=== PATIENT | male | born 1945 | race Caucasian/White ===

== ENCOUNTER 2019-03-07 22:01 | Emergency (ER) | payer MEDICARE, OTHER ==
[~2019-03-07] VITALS: Ht 182.9 cm; Wt 90.7 kg
[~2019-03-07 22:01] MED LIST: ASPIRIN81 MG PO; ATENOLOL25 MG PO; ATORVASTATIN CA80 MG PO; COQ-1030 MG PO; FISH OIL 1,2001 EACH PO; HYDROCHLOROTHIA25 MG PO; MULTIVITAMINS1 EAC7 PO; VITAMIN B122500 MC1 PO; VITAMIN C1000 MG PO; ZYRTEC10 M3 PO
== END 2019-03-08 02:18 | disposition home or self-care (01) ==
LOC: ED 22:01
DX: R41.82 Altered mental status, unspecified (principal); I10 Essential (primary) hypertension; E11.9 Type 2 diabetes mellitus without complications; Z87.891 Personal history of nicotine dependence; Z91.018 Allergy to other foods; Z91.048 Other nonmedicinal substance allergy status; Z79.82 Long term (current) use of aspirin; Z79.899 Other long term (current) drug therapy; W18.30XA Fall on same level, unspecified, initial encounter
CPT/HCPCS: 70450; 80053; 81001; 85025; 85610; 85730; 99284-25; G0480

== ENCOUNTER 2019-10-23 10:30 | Inpatient (IN) | payer MEDICARE, OTHER ==
[~2019-10-23] VITALS: Ht 182.9 cm; Wt 65.3 kg
[~2019-10-23 10:30] MED LIST changes: -ASPIRIN81 MG PO; +ECOTRIN325 MG PO
[2019-10-23] MEDS ORDERED: DONEPEZIL HCL10 MG PO (12:57)
[2019-10-23] MEDS ORDERED: FOSINOPRIL SODI40 MG PO (12:57)
[2019-10-23] MEDS ORDERED: ATORVASTATIN CA80 MG PO (12:57)
[2019-10-23] MEDS ORDERED: METFORMIN HCL500 MG PO (12:58)
--- NOTE | 2019-10-23 13:35 | NUR ---
PATIENT ARRIVES TO CCU VIA STRETCHER FROM ER AT 1300. PT PULLED OVER TO CCU BED X 2 PERSON ASSIST. PT UNABLE TO HELP. PT IS NON VERBAL AND ONLY NOTED TO BE MOANING OUT AND MOSTLY GAZES TO THE LEFT. WHEN YOU CALL PATIENT'S NAME, HE DOES SEEM TO RESPOND SOMEWHAT BY REDIRECTING HIS EYES, BUT DOES NOT MAINTAIN EYE CONTACT. PT DOES NOT FOLLOW ANY COMMANDS. PT HAS A VERY MOIST, LOOSE SOUNDING COUGH. COUGH APPEARS VERY WEAK IN NATURE, AND PATIENT HAS BEEN HELPED TO SUCTION BACK OF HIS THROAT. GAG REFLEX PRESENT. HR INT HE 90-100s, SINUS. BP 130-150/70s. PT INIALLY ON 4 L NC BUT SP02 DOWN TO 82% AFTER MOVING PATIENT TO CCU BED AND OXYMASK APPLIED OVER NASAL CANNULA FOR A FEW MINUTES WHILE SP02 RETURNED TO GREATER THAN 90%. CURRENTLY 93% ON 4 L NC. PT DOES HAVE SOME MILD LABORED BREATHING WITH OME INTERCOSTAL RETRACTIONS NOTED. RODRIGUEZ CATH DRAINING YELLOW URINE. PT HAS FINISHED 2 500 ML BOLUS OF NS AND NOW A LITER OF LR IS INFUSING A BOLUS. ONE IV SITE IN LEFT HAND, 18G EMS START. BED ALARM WILL BE ON FOR SAFETY. PT HAS A VERY LARGE HEMATOMA BRUISE ON LEFT UPPER AND INNER THIGH, EXPANDING ABOUT 10 IN ACROSS WITH A PALPABLE MASS LIKE AREA IN THE CENTER. BRUISING IS PURPLEISH AND YELLOWISH, INDICATING THAT IT IS LIKELY NOT BRAND NEW. ALSO A YELLOW BRUISE NOTED OVER STERNAL AREA. SOME OTHER BRUISING DIFFUSE TO LOWER LEGS. CONTINUE TO MONITOR CLOSELY.
--- NOTE | 2019-10-23 14:54 | NUR ---
PATIENT DESATURATING AGAIN ON 4 L NC, DOWN TO 83%. OXYGEN NASAL CANNULA INCREASED TO 6 L, BUT SP02 STILL LOW. OXYMASK ATTEMPTED TO APPLY TO PATIENT'S FACE BUT PATIENT IMMEDIATELY REACHES FOR THIS AND PULLS IT OFF. PT SUCTIONED BEST POSSIBLE IN BACK OF THROAT WITH SOME SUCCESS. SP02 NOW UP TO 89% ON 6 L NC. VERY COARSE LOOSE RHONCHI AUSCULTATED IN LEFT UPPER LUNG AREA AND SOME COARSENESS HEARD IN RIGHT UPPER LUNG WELL.
--- NOTE | 2019-10-23 16:07 | NUR ---
PATIENT STILL MOANING AND GROANING SOME, BUT OVERALL SEEMS SOMEWHAT LESS RESTLESS. PT WILL TRACK THIS RN WITH HIS EYES, AND DID OPEN HIS MOUTH WHEN I TOOK HIS TEMP ORALLY. OTHERWISE REMAINS NON VERBAL. SP02 IS 91% ON 4 L NC AT THIS TIME. WILL CONTINUE TO MONITOR.
--- NOTE | 2019-10-23 16:20 | NUR ---
PATIENT REPOSITIONED TO LEFT SIDE AND KEPT WITH HOB AT 45 DEGREES. P CURRENTLY 90% ON 4 L NC. SUPPOSITORY TO BE GIVEN.
--- NOTE | 2019-10-23 18:00 | NUR ---
ASSISTED KIM JACKSON IN REPOSITIONING PATIENT AND CHECKING PATIENT FOR BOWEL MOVEMENT. RN STARTED NEW IV PATIENT HAD PULLED HIS OUT OF LEFT HAND. BED ALARM ON, PATIENT SITTING UP IN BED, CALL LIGHT IN REACH.
--- NOTE | 2019-10-23 18:12 | NUR ---
PATIENT MANUALLY DISIMPACTED FROM HARD EASILY PALPABLE STOOL PRESENT AT HIS RECTUM. PT TOLERATED WELL. PT PULLED IV OUT OF LEFT HAND AND WAS ATTEMPTING TO GET OUT OF BED EVIDENCED BY THROWING HIS LEG OUT OF THE BED. PT HELPED TO REPOSITION BACK INTO BED AND TURNED TO LEFT SIDE. NEW IV PLACED IN LEFT FOREARM. IVF CONTINUE AT 125 ML/HR. PT CONTINUES TO HAVE SP02 OF 87% AND THIS TURNED UP TO 6 L FROM 5 L. WILL CONTINUE TO MONITOR.
--- NOTE | 2019-10-23 19:15 | NUR ---
REPORT RECEIVED FROM MANUEL ALVAREZ. PT IS RESTING IN BED WITH EYES CLOSED, IN VIEW OF NURSES STATION. SPO2 92% ON 5L/NC
--- NOTE | 2019-10-23 20:29 | NUR ---
PT REPOSITIONED AND ASSESSMENT DONE. PT IS AWAKE, HAS EYES OPEN BUT DOES NOT MAKE ANY RESPONSE TO QUESTIONS ASKED. APPEARS COMFORTABLE AND RESTFUL. LUNGS DIM, CLEAR IN UPPER LOBES FEW COARSE SOUNDS ON LEFT SIDE. SPO2 92% 5L/NC. RESTING HR 105 AND RESP RATE 23 UNLABORED. RODRIGUEZ PATENT DRAINING CLEAR YELLOW URINE. IVF INFUSING AT 125ML/HR AND IV ABX HUNG. BED ALARM ON AND PT IN VIEW OF NURSES STATION.
--- NOTE | 2019-10-23 23:16 | NUR ---
PT A BIT MORE RESTLESS, ATTENDS CHECKED AND PT INC STOOL. ATENDS CHANGED AND PT REPOSITIONED UP IN BED. DURING THIS TIME PT IS AWAKE BUT DOES NOT ANSWER QUESTIONS. ORAL CARE AND SUCTIONING DONE. URINE OUTPUT 43ML FOR LAST HOUR. HR DOWN TO 98, SPO2 92% ON 5L/NC. ATTEMPTED TO HAVE PT WEAR OXYMASK BUT HE CONSTANTLY REMOVED IT.
--- NOTE | 2019-10-24 00:30 | NUR ---
PT PULLING AT NC. REAPPLIED AND SATURATIONS INCREASED TO LOW 90s.
--- NOTE | 2019-10-24 01:30 | NUR ---
pt REMOVED NC DROPPING INTO MID 80s. KIM GREEN IN ROOM ALONG WITH THIS UNIT CLERK. DEEP SUCTION OCCURED pt SEEMED TO HAVE A HARD TIME COUGHING. NC WAS REAPPLIED BUT pt CONTINUED TO REMOVE. BLOW-BY WAS ATTEMPTED WITH INCREASED SATURATION TO THE LOW 90s.
--- NOTE | 2019-10-24 02:00 | NUR ---
PT REPOSITIONED, CONT TO TRY TO TAKE O2 OFF, SATS 85% ON ROOM AIR. REQUIRES FREQUENT REPLACING OF O2.
--- NOTE | 2019-10-24 02:15 | NUR ---
pt MOVED OXYMASK (BLOW-BY) FROM AROUND HIS FACE CAUSING A DECREASE IN o2 SATS. NC WAS REAPPLIED AT THIS TIME.
--- NOTE | 2019-10-24 04:30 | NUR ---
PT HAS BEEN FREQUENTLY PICKING AT NASAL CANNULA AND OXYMASK, WIILL NOT KEEP THEM IN PLACE AND SPO2 85-87% ON ROOM AIR. QUICKLY UP TO 93% WHEN O2 APPLIED BUT PT CAN NOT SEEM TO KEEP O2 IN PLACE.
--- NOTE | 2019-10-24 04:50 | NUR ---
PLACED NASAL CANNULA 6L WITH OXYMASK WITH O2 OFF OVER CANNULA TO KEEP PT FROM PULLING CANNULA OFF. THIS HAS WORKED TO KEEP CANNULA IN PLACE AND SPO2 95%. RESTING HR 100 AND RESP RATE 20. URINE OUTPUT HAS DROPPED SOME, TO 30 ML LAST HOUR AND URINE HAS BECOME MORE GUMARO. PT SEEMS A BIT MORE ROUSABLE THIS AM AND IS MAKING SOME MORE VERBAL LIKE SOUNDS AT TIMES. PT REPOSITIONED AND ATTENDS DRY.
--- NOTE | 2019-10-24 08:23 | NUR ---
HEAD OF BED UP 45, PATIENT RESTING, EYES CLOSED. WOKE FOR THIS CHARTER AND TOUR BUS DRIVER TO SWAB HIS MOUTH WITH TOOTHETTE. VITALS AND I&OS CHARTED. CALL LIGHT IN WITHIN REACH.
--- NOTE | 2019-10-24 09:03 | NUR ---
DR. BOWER IN ROOM TO SEE PATIENT. PATIENT REPOSITIONED TO LEFT SIDE AND ATTENDS CHANGED. PT HAD A SMEAR OF A BM. URINE OUTPUT THIS LAST HOUR WAS 32 ML. PT DOWN TO 3 L NC WITH SP02 OF 94%. SUCTIONED ORALLY AND PATIENT HAS MODERATE AMOUNTS OF SPUTUM AND SECRETIONS ACCUMULATING IN HIS MOUTH. LUNGS CLEAR ON RIGHT UPPER LOBE BUT DIMINISHED ON LEFT UPPER LOBE. HR IN THE 80s AT THIS MOMENT, LAST BP 138/61.
--- NOTE | 2019-10-24 09:05 | NUR ---
ASSISTED RN MANUEL-REPOSTITIONED PATIENT TO LFT SIDE. CHANGED BRIEF, WAS INCONT OF STOOL. USED WASHCLOTH ON PATIENTS FACE, HANDS, AND ARMPITS. CHANGED PILLOWCASES AND HEEL PROTECTOR BOOTIES WERE PUT ON FEET. RN SUCTIONED PATIENTS MOUTH. PATIENT RESTING PEACEFULLY,CALL LIGHT IN REACH.
--- NOTE | 2019-10-24 09:46 | NUR ---
DISCUSSED WITH PATIENT'S DAUGHTER IN LAW JONATHAN ON THE PHONE DR. BOWER'S WANT TO HAVE A FAMILY CARE CONFERENCE. THIS WAS SET UP FOR 1400 TODAY WHEN FAMILY WILL COME IN.
[2019-10-24] MEDS ORDERED: VENTOLIN HFA18 GM INH (09:51)
[2019-10-24] MEDS ORDERED: COREG12.5 MG PO (09:52)
[2019-10-24] MEDS ORDERED: ALPHAGAN P5 ML OU (09:53)
[2019-10-24] MEDS ORDERED: ASPIRIN81 MG PO (09:55)
--- NOTE | 2019-10-24 11:02 | NUR ---
PATIENT REPOSITIONED ONTO RIGHT SIDE AND ORAL CARE PROVIDED. TEMP 99.3 AXILLARY AND 99.1 ORALLY. PT FEELS WARM TO TOUCH. SP02 IS 93% ON 2 L NC.
--- NOTE | 2019-10-24 11:06 | NUR ---
ASSISTED KIM JACKSON, REPOSITIONED PATIENT ONTO RT SIDE, PATIENTS BRIEF WAS DRY. PATIENT RUNNING LOW GRADE FEVER. MOUTH WAS SUCTIONED. CALL LIGHT IN REACH.
--- NOTE | 2019-10-24 12:19 | NUR ---
PATIENT UPRIGHT 45DEGREES, VITALS DONE. MOUTH MOISTENED AND SECRETIONS SUCTIONED. CALL LIGHT IN REACH
--- NOTE | 2019-10-24 12:41 | NUR ---
REPORT GIVEN TO KIM LANDA ON MED SURG. PATIENT TO BE MOVED OVER IN THE BED. FAMILY CARE CONFERENCE AT 1400.
--- NOTE | 2019-10-24 13:00 | NUR ---
PT ARRIVED TO FLOOR VIA BED. VITLAS TAKEN AND STABLE. 6L NC WITH HUMIDIFICATION IN PLACE. ASSESSMENT COMPLETED. VISIBLE FROM NURSING STATION. SUCTION AND MOUTH CARE PROVIDED.
--- NOTE | 2019-10-24 13:53 | NUR ---
Medications reconciled using current pharmacy records as patient unable to provide history
--- NOTE | 2019-10-24 14:00 | NUR ---
PT REPOSITIONED TO LEFT SIDE. APPEARS COMFORTABLE. CPOX IN PLACE. 94% ON 6L NC AND HR OF 80. VISIBLE FROM NURSING STATION.
--- NOTE | 2019-10-24 17:45 | NUR ---
CALLED DR BOWER. FAMILY BACK AND HAVE DECIDED TO DO COMFORT CARE.
--- NOTE | 2019-10-24 17:58 | NUR ---
REPORTSITIONED TO RIGHT SIDE. PT TOLERATED WELL. FAMILY AT BEDSIDE. VISIBLE FROM NURSING STATION.
--- NOTE | 2019-10-24 18:00 | NUR ---
PATIENT AWAKE IN BED, FAMILY AT BEDSIDE. KIM LANDA AND THIS PACKER SAUSAGE AND WIENER REPOSITIONED PATIENT ONTO RT SIDE. MOUTH MOISTENED USING TOOTHETTE. CALL LIGHT IN REACH. FAMILY WILL CALL WITH ANY NEEDS.
--- NOTE | 2019-10-24 19:00 | NUR ---
PT FAMILY TO NURSING STATION TO CLARIFY COMFORT CARE NEEDS FOR PT. DR BOWER NOTIFIED. AWAITING ORDERS.
--- NOTE | 2019-10-24 19:05 | NUR ---
SHIFT REPORT RECEIVED FROM STACI LANDA AT BEDSIDE. PT AWAKE AND RESTING IN BED, DAUGHTER IN LAW SUDHEER AND EUGENIO IN ROOM. PT BEING MEDICATED FOR PAIN AND ORAL SECRETIONS BY STACI RN AT BEDSIDE. PT RESTING IN BED, 3-3.5LNC IN PLACE. NO FURTHER NEEDS, CALL LIGHT IN REACH.
--- NOTE | 2019-10-24 19:29 | NUR ---
PT WITH MOANING AND APPEARS TO BE UNCOMFORTABLE. 5MG MORPHINE SUBLIGUAL ADMINISTERED. SCOPE PATCHED PLACED BEHIND RIGHT EAR FOR SECRETIONS. IV FLUIDS STOPPED. FAMILY AT BEDSIDE.
--- NOTE | 2019-10-24 20:05 | NUR ---
DISCUSSED WITH EUGENIO AND DAUGHTER SUDHEER IF THEY WOULD LIKE TO BE CALLED IF PT STATUS DECLINES. STATES, "YEAH, YOU CAN CALL BUT I MAY NOT HEAR IT IF I'M ASLEEP". DAUGHTER IN LAW SUDHEER ALSO WOULD LIKE TO BE CALLED.
--- NOTE | 2019-10-24 20:52 | NUR ---
ORDERS CLARIFIED WITH . VERBAL ORDERS FOR NO VS DISCUSSED WITH pt'S FAMILY. UPDATED THAT pt IS ON 3L OXYGEN BY NC. ORDERS REPEATED BACK BY KIM GUO.
--- NOTE | 2019-10-24 22:00 | NUR ---
ASSESSMENT COMPLETE, NO VS PER MD ORDERS. RR 22, EVEN AND UNLABORED. 3LNC IN PLACE. ORAL CARE AND CHAPSTICK APPLIED. PT REMAINS NONVERBAL, BUT WILL FOLLOW NURSING STAFF WITH EYES. FOLLOWS COMMANDS SUCH OPENING MOUTH TO BEST OF ABILITY, GRUNTS AT TIMES. APPEARS RELAXED, NO HAND GRASPING NOTED, WILL MONITOR. RODRIGUEZ CARE DONE, OUTPUT DARK YELLOW IN COLOR. REPOSITIONED IN BED WITH HELP FROM EFRAIN ALVAREZ. HOB ELEVATED. HEEL PROTECTORS IN PLACE.
--- NOTE | 2019-10-24 23:13 | NUR ---
DAUGHTER IN LAW SUDHEER CALLED FOR PT UPDATE. UPDATE PROVIDED AND QUESTIONS ANSWERED.
--- NOTE | 2019-10-25 00:53 | NUR ---
WITH THE HELP OF KIM GUO WE REPOSITIONED PT IN BED.
--- NOTE | 2019-10-25 00:56 | NUR ---
IN ROOM TO ROUND ON PT. PT AWAKE AND RESTING IN BED, RESTLESS INCREASING AND ATTEMPTING TO REMOVE NC FROM NARE. 5MG SL MORPHINE GIVEN (SEE EMAR). RESPIRATIONS SOMEWHAT LABORED. PT REPOSITIONED WITH HELP FROM ASMITA AUGUST. ORAL CARE DONE WITH MOUTH SWAB, EYES ALSO CLEANED. BED IN LOW POSITION WITH HOB ELEVATED. IN VIEW OF RN STATION.
--- NOTE | 2019-10-25 01:50 | NUR ---
PT APPEARS MORE RELAXED AND COMFORTABLE, NO GRUNTING OR RESTLESSNESS NOTED. RR 20, 3LNC REMAINS IN PLACE FOR COMFORT. SPOT CHECKED, O2 SAT 92-93%, HR 70'S. NO DISTRESS NOTED, WILL MONITOR.
--- NOTE | 2019-10-25 03:31 | NUR ---
PT RESTING IN BED, EYES CLOSED. RR WNL, NO DISTRESS NOTED. PT APPEARS RELAXED AND COMFORTABLE AT THIS TIME. 3LNC IN PLACE. PT IN VIEW OF NURSE'S STATION.
--- NOTE | 2019-10-25 04:57 | NUR ---
PT REPOSITIONED IN BED WITH HELP FROM EFRAIN ALVAREZ. 3LNC REMAINS IN PLACE, RR 20. NO DISTRESS OR SIGNS OF PAIN OR AIR HUNGER NOTED. PT APPEARS COMFORTABLE AT THIS TIME, WILL MONITOR. ORAL CARE DONE TO BEST OF ABILITY, PT OPENED MOUTH PARTIALLY FOR CARE. RODRIGUEZ PATENT, DARK YELLOW URINE NOTED, EMPTIED FOR 250MLS. CALL LIGHT IN REACH, PT IN VIEW OF RN STATION. IV SITE WNL, FLUSHED EASILY W/ 10 MLS NS.
--- NOTE | 2019-10-25 05:06 | NUR ---
PT HAD UNEVENTFUL NIGHT, SLEPT ON AND OFF. NONVERBAL, 3LNC IN PLACE FOR COMFORT. PT ON COMFORT CARE. NONVERBAL AT BASELINE. TURN Q2H, HEEL PROTECTORS IN PLACE. RODRIGUEZ PATENT, DRAINING DARK YELLOW URINE. IV SITE SL AND WNL. NPO, HOB ELEVATED FOR RISK OF ASPIRATION. SUCTION PRN, ORAL CARE Q2H AND PRN. PAIN CONTROLLED WITH PRN SL MORPHINE. SCOPE PATCH BEHIND RIGHT EAR.
--- NOTE | 2019-10-25 10:07 | NUR ---
ST ENTERED PT ROOM TO DISCUSS POC WITH NSG VIKY AND PTS FAMILY PT HAD ORDERS FOR SWALLOW EVAL BUT WAS PLACED ON COMFORT CARE MEASURES SINCE THEN. NSG AND FAMILY BOTH INDICATED THAT THEY ARE ONLY PURSUING COMFORT MEASURES AT THIS TIME AND THAT THEY DO NOT WANT A SWALLOW STUDY. I INFORMED THEM THAT THEY COULD CALL ME IF THEY WANT ME TO DO A SCREENING AND I WILL COME BY TO DO SO MI. NO ASSESSMENT DONE AND NO THERAPY WILL BE RENDERED AT THIS TIME UNLESS GOALS OF CARE CHANGE
--- NOTE | 2019-10-25 10:45 | NUR ---
Spoke with Mariah and pt's . They would like pt to go to [facility]. Called and spoke with Geno and they have room available, but do not have staff at this time. They may have by the end of the week. Mariah notifie and she request I call [facility]. Called and spoke with Letty. She will not have a room available until next week. Called and left messages for [facility], [facility], and [facility]. Awaiting call back.
--- NOTE | 2019-10-25 11:01 | NUR ---
PT RESTING SOUNDLY APPEARS MORE RELAXED AFTER MORPHINE, NO LONGER MOANING OR GRIMACING, EYES OPEN TO SOUND, NONVERBAL. ORAL CARE AND REPOSITIONING PROVIDED. PT FAMILY IN THE ROOM, CLERGY PRESENT
--- NOTE | 2019-10-25 12:30 | NUR ---
REQUEST BY KIM SALMON TO VISIT WITH FAMILY OF PT. HE HAS BEEN PLACED ON COMFORT CARE. VERY LITTLE RESPONSE FROM VIKY OR SON LEILA. SON SEEMS RESISTANT TO TALK-SAID HAD NO NEED, VIKY GAVE ANSWERS FOR END OF LIFE-CREMATION BUT NO RESPONSE ON HOME. KYLIE LEONARDO SMILED AND THANKED ME. HAD PRAYER WITH FAMILY. Diego WILLARD CAME OUT AND APOLOGIZED FOR LACK OF INPUT BY FAMILY. SHE STATED SHE USUALLY IS THE ONE TO TALK. WORRIED ABOUT LEILA AND HIS LACK OF RESPONSE, BUT DOESN'T SURPRISE HER. GAVE COMFORT AND REASSURANCE
--- NOTE | 2019-10-25 13:23 | NUR ---
Received call from Zari at [facility] in [facility]. She is sending the chart to her Physician for completion of orders.
--- NOTE | 2019-10-25 13:32 | NUR ---
PT RESTING COMFORTABLY FAMILY X2 PRESENT IN THE ROOM. PT REPOSITIONED, ORAL CARE PROVIDED. SPOKE AT LENGTH WITH FAMILY R/T PROCESS AND PT CURRENT BREATHING PATTERN. ALL QUESTIONS ANSWERED. FAMILY APPEAR TO BE COPING WELL.
== END 2019-10-25 14:25 | disposition swing bed (61) | DRG 177 ==
LOC: ED 10:30 → CCU 12:27 → MS 10-24 12:45
PROVIDERS: ADMIT Internal Medicine
DX: J69.0 Pneumonitis due to inhalation of food and vomit (principal); J96.01 Acute respiratory failure with hypoxia; G93.41 Metabolic encephalopathy; E87.0 Hyperosmolality and hypernatremia; E86.0 Dehydration; I10 Essential (primary) hypertension; R13.12 Dysphagia, oropharyngeal phase; G31.85 Corticobasal degeneration; E11.9 Type 2 diabetes mellitus without complications; E78.5 Hyperlipidemia, unspecified; Z85.72 Personal history of non-Hodgkin lymphomas; Z87.891 Personal history of nicotine dependence; Z20.828 Contact with and (suspected) exposure to other viral communicable diseases; Z74.01 Bed confinement status; Z66 Do not resuscitate; Z51.5 Encounter for palliative care; Z79.82 Long term (current) use of aspirin; Z79.899 Other long term (current) drug therapy
CPT/HCPCS: 36415; 51702; 71045; 80053; 81001; 83735; 84100; 85025; 97163; 99285-25; J0295; J1650; J2270; J3480; J7040; J7060; J7070; J7121; U0002

== ENCOUNTER 2019-10-25 14:25 | Inpatient (IN) | payer MEDICARE, OTHER ==
[~2019-10-25 14:25] MED LIST changes: +ALPHAGAN P5 ML OU; +ASPIRIN81 MG PO; +COREG12.5 MG PO; +DONEPEZIL HCL10 MG PO; +FOSINOPRIL SODI40 MG PO; +METFORMIN HCL500 MG PO; +VENTOLIN HFA18 GM INH
--- NOTE | 2019-10-25 17:06 | NUR ---
FAMILY X3 REMAIN IN THE ROOM. PT RESTING EYES CLOSED, MAKES EYE CONTACT WHEN SPOKEN TO. REPOSITIONED AND ORAL CARE PROVIDED, PT DOES NOT APPEAR PAINFUL OR RESTLESS
--- NOTE | 2019-10-25 17:36 | NUR ---
Notified by Susie at [facility]. She is unable to visit for assessment, but they will accept Mason. Will fax chart and updated pt is unresponsive, has a goss, etc. Pt can admit tomorrow. She is faxing orders.
--- NOTE | 2019-10-25 17:39 | NUR ---
Phone number for Hailey Mcintyre given.
--- NOTE | 2019-10-25 19:30 | NUR ---
FAMILY AND THIS LITHOGRAPHIC ETCHER DID RODRIGUEZ CARE, CHANGED GOWN AND REPOSITIONED PATIENT.
--- NOTE | 2019-10-25 19:51 | NUR ---
REPORT RECEIVED FROM DAY SHIFT RN. PT LYING IN BED ON LEFT SIDE, EYES OPEN BUT NON-VERBAL. DAY SHIFT RN MEDICATING FOR PAIN. FAMILY AT BEDSIDE, DENIES NEEDS AT THIS TIME. WHITE BOARD UPDATED. CALL LIGHT IN REACH.
--- NOTE | 2019-10-25 20:10 | NUR ---
FAMILY MEMEBER TO DESK REPORTING PT APPEARS UNCOMFORTABLE. PT GRUNTING/MOPANING. RR 20. PRN ADMINISTERED PER EMAR.
--- NOTE | 2019-10-25 21:40 | NUR ---
FAMILY TO NURSES STATION REQUESTING PRN SUPPOSITORY FOR DISCOMFORT. ADMINISTERED PER ORDER. REPOSITIONED PT WITH PILLOWS. TEMP 98.6, HR 58, SPO2 77% ON RA. FAMILY REQUESTS TO LEAVE OFF IT CAUSES AGITATION.
--- NOTE | 2019-10-26 01:18 | NUR ---
PT REPOSITIONED WITH PILLOWS. ORAL CARE DONE. PT APPEARS COMFORTABLE, RESTING WITH EYES CLOSED.
--- NOTE | 2019-10-26 02:19 | NUR ---
PT WITH EYES OPEN, MOANING, AND REMOVING GOWN. PRN ADMINISTERED FOR PAIN. REPOSITIONED WITH PILLOWS.
--- NOTE | 2019-10-26 03:40 | NUR ---
PRN PROVIDED FOR COMFORT. PT REPOSITIONED WITH PILLOWS. RODRIGUEZ PATENT. RR LABORED WITH PERIODS OF APNEA.
--- NOTE | 2019-10-26 05:40 | NUR ---
PT GRUNTING AND PULLING AT GOWN. PRN GIVEN FOR PAIN/DISCOMFORT. PT FAMILY UPDATED VIA TELEPHONE.
--- NOTE | 2019-10-26 07:39 | NUR ---
Administered 4mg morphine IVP per family request for sob and comfort. Offered to reposition pt at this time; family declined.
--- NOTE | 2019-10-26 07:46 | NUR ---
Pt resting in bed, eyes closed, resp labored, intermittent moaining. Family reports improvement with his comfort level. Recently medicated with morphine. Family at bedside. Instructed family to call staff for any needs.
--- NOTE | 2019-10-26 08:37 | NUR ---
Morphine 5mg IVP given for comfort and labored breathing. Family remain at bedside. Scope patch intact behind right ear. Offered repositioing and oral care; family declined at this time.
--- NOTE | 2019-10-26 09:00 | NUR ---
RODRIGUEZ REMOVED, 9ML STERILE WATER REMOVED FROM BALLOON. LEFT FOREARM IV REMOVED WELL, CATHETER TIP INTACT. [facility]
--- NOTE | 2019-10-26 09:00 | NUR ---
Family member out to nurses station, stated pt possibly . Myself and Ml RN in to assess pt. Pt has no notable heart sounds per ausculation. Skin appears pale. Dr. Phillip notified. Family requesting time with pt. Door closed at this time. Family has no needs at this time. Call light within reach.
--- NOTE | 2019-10-26 09:04 | NUR ---
THIS RN AT THIS TIME ASSESS PT FOR HEART TONE. NO HEART TONE NOTED, SECOND RN JOSH CONFIRMED NO HEART TONE. MD NOTIFIED AT THIS TIME. FAMILY AT BEDSIDE.
--- NOTE | 2019-10-26 11:12 | NUR ---
NOTIFIED BY ASMITA NAIK OF PTS' PASSING AND FAMILY IN [facility]. SUDHEER CAME OUT AND REQUESTED I WAIT A MOMENT, THEY ARE CALLING SON IN [place] TO NOTIFY. ON ENTRANCE, MET WITH FAMILY, GAVE CONDOLENCES. BOTH VIKY AND SON LEILA WERE ALMOST STOIC-VERY LITTLE EMOTION OR COMMUNICATION AT ALL. GAVE INFO ON NEXT STEPS,THEY DID NOT WANT TO STAY FOR DIR.I OFFERED A PRAYER, NOTIFIED AND EXCORTED BODY TO VEHICLE WITH APPROPRIATE PAPERWORK
== END 2019-10-26 10:15 | DRG 951 ==
LOC: MS 14:25
PROVIDERS: ADMIT Student in an Organized Health Care Education/Training Program
DX: Z51.5 Encounter for palliative care (principal); J96.01 Acute respiratory failure with hypoxia; J69.0 Pneumonitis due to inhalation of food and vomit; G31.85 Corticobasal degeneration; I10 Essential (primary) hypertension; E11.9 Type 2 diabetes mellitus without complications; E78.5 Hyperlipidemia, unspecified; Z74.01 Bed confinement status; Z85.72 Personal history of non-Hodgkin lymphomas; Z79.84 Long term (current) use of oral hypoglycemic drugs; Z79.82 Long term (current) use of aspirin; Z79.899 Other long term (current) drug therapy
CPT/HCPCS: J2270